=== PATIENT | born 1985 | race Caucasian/White ===

== ENCOUNTER 2021-11-15 08:00 | Outpatient (RCR) | payer OTHER, SELFPAY | END 2021-12-27 13:43 | disposition home or self-care (01) | LOC: HO.PT 08:00 | PROVIDERS: PCP Family Medicine; Visit Provider Family Medicine | DX: M54.50 Low back pain, unspecified (principal); M25.551 Pain in right hip; M25.552 Pain in left hip | CPT/HCPCS: 97110; 97112; 97140; 97161 ==

== ENCOUNTER → 2022-04-09 08:02 | Outpatient (BNVA) | payer OTHER, SELFPAY | PROVIDERS: PCP Family Medicine; Visit Provider Internal Medicine | DX: M54.16 Radiculopathy, lumbar region (principal) ==

== ENCOUNTER 2022-04-20 08:08 | Outpatient (REF) | payer OTHER, SELFPAY ==
--- NOTE | ~2022-04-20 | MR_ITS ---
EXAMINATION: MR LUMBAR SPINE WITHOUT AND WITH CONTRAST CLINICAL INFORMATION: 36-year-old with radiculopathy, lumbar region. Self-reported radiating pain, left side, leg to toes. History of previous surgery 01/2020. COMPARISON: 09/02/2019 MRI. TECHNIQUE: Multiplanar multisequence MR imaging of the lumbar spine was done prior to and following the administration of 6.5 mL of Gadavist. FINDINGS: Coronal Alignment: Trace mid lumbar dextrocurvature noted, slightly convex to the right at L2-L3 probably unchanged from previous study. Sagittal Alignment: Normal. Lumbosacral Junction: Normal. There appear to be 6 lumbar-like vertebral bodies which should be correlated with plain x-rays, suggesting vertebral numeric variation. Vertebral Bodies: Stable vertebral body heights. No interval compression fractures. Disc Spaces and Endplates: Moderate disc volume loss at L5-S1 similar to the previous exam, with disc desiccation, unchanged in appearance. Srwk-qh-wlthuney disc volume loss at L4-L5 similar to prior study with disc desiccation, stable in appearance. Mild disc volume loss at L2-L3 with disc desiccation which is new from previous study. No significant spondylosis. Spinal Canal: No abnormal developmental findings. Bone Marrow: No significant marrow-replacing process or bone marrow edema and no abnormal bone marrow enhancement. Conus Medullaris: Terminates at L1-L2. Morphology and signal is normal. No abnormal enhancement. Intradural Nerve Roots: Within normal limits. No abnormal intradural enhancement. L5-S1: There is evidence of a previous left hemilaminotomy with some enhancing scar tissue in the left laminotomy defect and within the left subarticular zone along the lateral margin of the traversing left S1 nerve root sleeve. There is minimal residual annular bulging with a small central transverse annular fissure which is noted to enhance. No neural impingement or thecal sac compromise. Minor facet arthropathy noted bilaterally, stable in appearance, with mild left-sided foraminal narrowing without neural impingement, unchanged. L4-L5: Evidence of a previous left-sided hemilaminectomy at this level, with some enhancement in the left subarticular zone suggesting mild epidural scarring. Shallow broad-based central disc protrusion is present with adjacent enhancement in the venous plexus. There is associated slight indentation of the ventral thecal sac with some crowding of the subarticular zones bilaterally, without significant central canal stenosis. Disc protrusion probably abuts the traversing L5 nerve roots bilaterally, left more than right. There is cmch-yh-ikssuowl facet arthropathy, left more than right, slightly progressed on the left since previous exam without significant neural foraminal stenosis. L3-L4: Disc contours are normal. No facet arthropathy or significant ligamentum flavum thickening.?No canal or neuroforaminal stenosis. L2-L3: Small right-sided inferior foraminal/extra foraminal disc protrusion with slight annular fissuring noted which is a new finding, with no definite neural impingement. No significant facet arthrosis or canal stenosis. Mild foraminal narrowing noted on the right. L1-L2: Disc contours are normal. No facet arthropathy or significant ligamentum flavum thickening.?No canal or neuroforaminal stenosis. Very small left paramedian disc protrusion suspected at T10-T11 with moderate left-sided and mild right-sided facet arthrosis at this level which is not imaged on the previous study. Paravertebral and Included Extraspinal Soft Tissues: The visualized paravertebral soft tissues appear unremarkable. MR/MR lumbar spine wo/w con IMPRESSION: 1. Discogenic degenerative changes at L5-S1 and L4-L5 similar to the previous exam, with postoperative changes on the left at L4-L5 and L5-S1 with some enhancing epidural scarring in the left subarticular zone at these levels. 2. Broad-based shallow central disc protrusion at L4-L5 which probably abuts the traversing L5 nerve roots bilaterally, left more than right with chsq-qm-gswflcne facet arthropathy, slightly progressed on the left since previous exam without significant neural foraminal stenosis. 3. Small right-sided inferior foraminal/extra foraminal disc protrusion at L2-L3 which is a new finding without neural impingement. Development of discogenic degenerative changes at L2-L3 since the previous study. 4. Small left paramedian disc protrusion suspected at T10-T11 with facet arthropathy at this level which is not imaged on the previous study.
== END 2022-04-20 08:09 | disposition home or self-care (01) ==
LOC: HO.MRI 08:08
PROVIDERS: PCP Family Medicine; Visit Provider Internal Medicine
DX: M54.16 Radiculopathy, lumbar region (principal)
CPT/HCPCS: 72158; A9585

== ENCOUNTER 2022-05-09 06:00 | Outpatient (REF) | payer OTHER, SELFPAY ==
--- NOTE | ~2022-05-09 | FL_ITS ---
EXAMINATION: XR FLUOROSCOPY WITH IMAGES CLINICAL INFORMATION: Radiculopathy, lumbar region. COMPARISON: None. TECHNIQUE: Fluoroscopy Supervised By: Dr. Azam Loving. Fluoroscopy Time: 0.4 minutes. Cumulative Dose: 12.1 mGy. DAP: 1.31 Gycm2. Images: 4. FINDINGS: Images demonstrate needles and contrast inferior to the left L4 and L5 pedicles. FL/FL guidance in treatment room IMPRESSION: Intraoperative fluoroscopy for pain management procedure.
== END 2022-05-09 06:01 | disposition home or self-care (01) ==
LOC: CF 06:00
PROVIDERS: Visit Provider Internal Medicine
DX: M54.16 Radiculopathy, lumbar region (principal)
CPT/HCPCS: 64483; 64484; J1040; J1100

== ENCOUNTER → 2022-06-08 09:03 | Outpatient (BNVA) | payer OTHER, SELFPAY | PROVIDERS: PCP Family Medicine; Visit Provider Internal Medicine | DX: Z13.89 Encounter for screening for other disorder (principal) ==

== ENCOUNTER → 2022-08-10 08:58 | Outpatient (BNVA) | payer OTHER, SELFPAY | PROVIDERS: PCP Family Medicine; Visit Provider Internal Medicine ==

== ENCOUNTER 2022-09-12 06:08 | Outpatient (REF) | payer OTHER, SELFPAY ==
--- NOTE | ~2022-09-12 | FL_ITS ---
EXAMINATION: XR FLUOROSCOPY WITH IMAGES CLINICAL INFORMATION: Radiculopathy, lumbar region. COMPARISON: None available. TECHNIQUE: Fluoroscopy Supervised By: Dr. Loving. Fluoroscopy Time: 0.4 minutes. Cumulative Dose: 6.01 mGy. DAP: 0.642 Gycm2. Images: 1. FINDINGS: Images demonstrate contrast injection and needle placement adjacent to the left lateral L4 and L5 vertebrae FL/FL guidance in treatment room IMPRESSION: Fluoroscopy guidance for pain management procedure
== END 2022-09-12 06:09 | disposition home or self-care (01) ==
LOC: CF 06:08
PROVIDERS: Visit Provider Internal Medicine
DX: M54.16 Radiculopathy, lumbar region (principal)
CPT/HCPCS: 64483; 64484; J1100

== ENCOUNTER → 2022-10-15 08:30 | Outpatient (BNVA) | payer OTHER, SELFPAY | PROVIDERS: PCP Family Medicine; Visit Provider Internal Medicine ==

== ENCOUNTER 2024-04-06 10:43 | Outpatient (AMB) | payer OTHER, SELFPAY ==
--- NOTE | 2024-04-06 10:43 | A.OFFVIS_ITS ---
Vital Signs 04/06/24 10:45 Height 5 ft 5 in Weight 154 lb BMI 25.6 BP 136/73 Blood Pressure Location Lt brachial Position Sitting Respiration 16 Pulse 86 Pulse Source Pulse Oximeter Pulse Oximetry (%) 98 Oxygen Delivery Method Room Air Intake Visit Reasons: Back Pain TAMMI 10/15/22 Allergies No Known Allergies Allergy (Verified 04/06/24 10:46) Medication List - Last Reconciled 04/06/24 by Zuly Guo LPN gabapentin 300 mg PO DAILY HPI HPI Back Pain TAMMI 10/15/22: Details: 38-year-old female with history of lumbar radiculopathy comes back for follow-up after flare-up of her symptoms once again. She reports that she was busy with the vaccination incision and lifted more than her usual. This aggravated her symptoms which has been associated with some left foot weakness as well. Her left lower extremity and back pain are similar to what she had prior to the last injection which was done in summer and provided her more than 1 year of excellent relief. She is interested in repeating injection. On exam today: Appears afebrile. Alert and oriented. Mood and affect appropriate. Follows and participates in conversation appropriately. Respiratory effort is unlabored. Able to transition from sit to stand unassisted. Ambulates with bilaterally normal heel strike and toe off. Able to stand and walk on toes and heels. No objective difference in toe strength bilaterally but reports some subjective weakness in the left toes while standing on the left toes alone. Left straight leg raise is positive. [facility] Medical History (Updated 04/09/22 @ 08:38 by Azam Loving MD) Post-operative nausea and vomiting Surgical History (Updated 04/09/22 @ 08:38 by Azam Loving MD) History of microdiscectomy Physical Exam Vital Signs: Last Vital Signs Pulse 86 04/06/24 10:45 Resp 16 04/06/24 10:45 BP 136/73 04/06/24 10:45 Pulse Ox 98 04/06/24 10:45 Oxygen Delivery Method Room Air 04/06/24 10:45 BMI result Body Mass Index 25.6 Assessment & Plan Assessment & Plan (1) Lumbar radiculopathy: Code(s): M54.16 - Radiculopathy, lumbar region Category: Medical Plan She had excellent response to last round of L4 and L5 TFESI for her lumbar radicular symptoms which have unfortunately returned after a season of lifting heavy boxes. We will plan for repeat L4 on L5 TFESI for lumbar radiculopathy. Patient is in agreement. Coding Level of Care Code Est Pt Level 3 (34169) Diagnoses Lumbar radiculopathy M54.16
[2024-04-06 10:45] VITALS: BP 136/73; PULSE 86; RESP 16; O2SAT 98; BMI 25.6
== END 2024-04-06 11:03 | disposition home or self-care (01) ==
LOC: HO.PMC 10:43
PROVIDERS: PCP Family Medicine; Visit Provider Internal Medicine
DX: M54.16 Radiculopathy, lumbar region (principal)
CPT/HCPCS: 99213

== ENCOUNTER 2024-04-16 06:23 | Outpatient (REF) | payer OTHER, SELFPAY ==
--- NOTE | ~2024-04-16 | FL_ITS ---
EXAMINATION: FL GUIDANCE ONLY HISTORY: M54.16 - Radiculopathy, lumbar region COMPARISON: None available. TECHNIQUE: Fluoroscopy time: 0.3 minutes. Cumulative Dose: 4.55 mGy. DAP: 0.0400 uGy-m2 (microgray-meter squared). Images: 3. FINDINGS: Images of the lumbar spine demonstrate needles and contrast on the left at the L4 and L5 levels. FL/FL guidance in treatment room IMPRESSION: Fluoroscopy during procedure. Please see procedure report for additional information. Electronically signed by: Luis Anderson MD 04/17/2024 08:01 AM MIKAEL GAMING
== END 2024-04-16 06:24 | disposition home or self-care (01) ==
LOC: CF 06:23
PROVIDERS: Visit Provider Internal Medicine
DX: M54.16 Radiculopathy, lumbar region (principal)
CPT/HCPCS: 64483; 64484; J1100; J2003; Q9967

== ENCOUNTER 2024-04-16 12:18 | Outpatient (AMB) | payer OTHER, SELFPAY ==
[2024-04-16 12:39] VITALS: BP 137/67; PULSE 99; O2SAT 100; BMI 25.6
--- NOTE | 2024-04-16 12:39 | A.OFFVIS_ITS ---
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 Allergies No Known Allergies Allergy (Verified 04/16/24 12:40) Medication List - Last Reconciled 04/16/24 by Marely Lindsey RRT gabapentin 300 mg PO DAILY Is last menstrual period known: Yes Last menstrual period: 04/02/24 Patient : No PFSH Medical History (Updated 04/09/22 @ 08:38 by Azam Loving MD) Post-operative nausea and vomiting Surgical History (Updated 04/09/22 @ 08:38 by Azam Loving MD) History of microdiscectomy Social History Patient : No Female Reproductive History Menstrual Date of last menstrual period: 04/02/24 Physical Exam Vital Signs: Last Vital Signs Pulse 99 04/16/24 12:39 BP 137/67 04/16/24 12:39 Pulse Ox 100 04/16/24 12:39 Oxygen Delivery Method Room Air 04/16/24 12:39 BMI result Body Mass Index 25.6 Office Procedures Details: Transforaminal epidural steroid injection, left L4-5 and L5-S1 After obtaining written consent, pre-procedure blood pressure and heart rate were stable and recorded in the nursing record. The patient was placed in the prone position on the fluoroscopy table. The lumbosacral area was prepped with chloraprep, allowed to dry and draped in sterile fashion. Using fluoroscopy, the skin overlying our target was anesthetized with 0.5% lidocaine. A 22 gauge 3.5 inch spinal needle was advanced to the safe triangle in the upper pole of the left L4 foramen. No paresthesias were elicited with needle placement and aspiration was negative for blood and CSF. Correct needle position was confirmed with approximately 1 ml contrast dye (Omnipaque 180 mg/ml) injected under real-time fluoroscopy. No evidence of vascular or intrathecal uptake was seen and there was both epidural and peripheral spread of the contrast agent. 7.5 mg dexamethasone plus 1 ml containing 0.5% lidocaine was slowly injected. The needle was flushed and removed. The same procedure was done at the L5 level. The skin was cleansed and a sterile bandages were applied. The patient tolerated the procedure well and no complications were encountered. Following the procedure the patient's vital signs were stable. The patient was discharged home in good condition with post-procedural instructions. Time Out: Immediately prior to the procedure, the following was verbally confirmed that there is a signed consent form and that the correct patient, planned procedure, site and side are consistent with documentation and that necessary equipment and/or blood products are available prior to the start of the case. Complications: none EBL: <5 cc 10196 - Lumbar/Sacral 53596 - Lumbar/Sacral, additional level Procedure code (CPT) selection complete Assessment & Plan Assessment & Plan (1) Lumbar radiculopathy: Code(s): M54.16 - Radiculopathy, lumbar region Category: Medical Plan Patient is status post left L4-5 and L5-S1 TFESI. Patient tolerated procedure well and was discharged home in stable condition with discharge instructions. All questions were answered. We will follow-up via telephone or in clinic to assess response to therapy. A follow-up appointment was made during today's visit. Orders: Orders FL guidance in treatment room 04/16/24 M54.16 - Radiculopathy, lumbar region Coding Level of Care Code Procedure Only Diagnoses Lumbar radiculopathy M54.16 CPT Codes Transforaminal Epidural Steroid Inj - TESI 3: 78059 - Lumbar/Sacral ([id number]) Transforaminal Epidural Steroid Inj - TESI 4: 65582 - Lumbar/Sacral, additional level ([id number])
--- NOTE | 2024-04-16 12:39 | MHC.OFFVIS ---
Vital Signs 04/16/24 12:39 Height 5 ft 5 in Weight 154 lb BMI 25.6 BP 137/67 Blood Pressure Location Lt brachial Position Sitting Pulse 99 Pulse Source Pulse Oximeter Pulse Oximetry (%) 100 Oxygen Delivery Method Room Air Intake Visit Reasons: Left L4-L5 TFESI Physical Laboratory Assistant Required: No Allergies No Known Allergies Allergy (Verified 04/16/24 12:40) Medication List - Last Reconciled 04/16/24 by Marely Lindsey, [employer] gabapentin 300 mg PO DAILY Is last menstrual period known: Yes Last menstrual period: 04/02/24 Patient : No PFSH Medical History (Updated 04/09/22 @ 08:38 by Azam Loving MD) Post-operative nausea and vomiting Surgical History (Updated 04/09/22 @ 08:38 by Azam Loving MD) History of microdiscectomy Female Reproductive History Menstrual Date of last menstrual period: 04/02/24 Assessment & Plan Assessment & Plan Orders: Orders FL guidance in treatment room Today M54.16 - Radiculopathy, lumbar region Coding
== END 2024-04-16 13:17 | disposition home or self-care (01) ==
LOC: HO.PMCPRC 12:18
PROVIDERS: PCP Family Medicine; Visit Provider Internal Medicine
DX: M54.16 Radiculopathy, lumbar region (principal)
CPT/HCPCS: 64483; 64484

== ENCOUNTER 2024-05-15 09:29 | Outpatient (AMB) | payer OTHER, SELFPAY ==
--- NOTE | 2024-05-15 09:30 | A.OFFVIS_ITS ---
Vital Signs 05/15/24 09:31 Height 5 ft 5 in Weight 152 lb BMI 25.3 BP 121/73 Blood Pressure Location Lt brachial Position Sitting Respiration 16 Pulse 74 Pulse Source Pulse Oximeter Pulse Oximetry (%) 97 Oxygen Delivery Method Room Air Intake Visit Reasons: s/p Left L4-L5 TFESI Allergies No Known Allergies Allergy (Verified 05/15/24 09:31) Medication List - Last Reconciled 05/15/24 by Zuly Guo LPN gabapentin 300 mg PO DAILY hydroxyzine HCl 25 mg PO BID ibuprofen 800 mg PO 3XD PRN sertraline 50 mg PO DAILY HPI HPI s/p Left L4-L5 TFESI: Details: Reports about 50% relief continues to have significant night time symptoms that wake her up, katharine in S1 distribution would like to try injection targetting S1 continuing HEP, stretching. does not feel well enough to return to swimming. ibuprofen usage has decreased since last injection. On exam today: Appears afebrile. Alert and oriented. Mood and affect appropriate. Follows and participates in conversation appropriately. Respiratory effort is unlabored. Able to transition from sit to stand unassisted. Ambulates with bilaterally normal heel strike and toe off. Able to stand and walk on toes and heels. SLR +ve left PFSH Medical History (Updated 04/09/22 @ 08:38 by Azam Loving MD) Post-operative nausea and vomiting Surgical History (Updated 04/09/22 @ 08:38 by Azam Loving MD) History of microdiscectomy Physical Exam Vital Signs: Last Vital Signs Pulse 74 05/15/24 09:31 Resp 16 05/15/24 09:31 BP 121/73 05/15/24 09:31 Pulse Ox 97 05/15/24 09:31 Oxygen Delivery Method Room Air 05/15/24 09:31 BMI result Body Mass Index 25.3 Assessment & Plan Assessment & Plan (1) Lumbar radiculopathy: Code(s): M54.16 - Radiculopathy, lumbar region Category: Medical Plan Plan for interlaminar NAVEEN at left L5/S1 if symptoms are no better one month patient in agreement Justification for interventional therapy: * Patient with average pain > 6/10 * Patient has exhausted conservative therapy including physical therapy and oral medications. * Previous injections provided greater than 50% relief. Coding Level of Care Code Est Pt Level 3 (71496) Diagnoses Lumbar radiculopathy M54.16
[2024-05-15 09:31] VITALS: BP 121/73; PULSE 74; RESP 16; O2SAT 97; BMI 25.3
== END 2024-05-15 09:46 | disposition home or self-care (01) ==
LOC: HO.PMC 09:29
PROVIDERS: PCP Family Medicine; Visit Provider Internal Medicine
DX: M54.16 Radiculopathy, lumbar region (principal)
CPT/HCPCS: 99213

== ENCOUNTER → 2024-05-15 09:29 | Outpatient (BNVA) | payer OTHER, SELFPAY | PROVIDERS: PCP Family Medicine; Visit Provider Internal Medicine ==